=== PATIENT | female | born 1975 | race Caucasian/White ===

== ENCOUNTER 2018-04-17 14:48 | Observation (INO) ==
--- NOTE | 2018-04-17 15:49 | Diag Imaging Result Doc PS360 ---
EXAM: CT HEAD W/O CONTRAST HISTORY: cva TECHNIQUE: CT head without contrast. COMPARISON: None. FINDINGS: No parenchymal hemorrhage. No epidural or subdural hematoma. No subarachnoid hemorrhage. No mass identified on this noncontrasted exam. No hydrocephalus. No sinus opacification. IMPRESSION: No hemorrhage. Negative brain CT without contrast. This exam was performed using automated exposure control, adjustment of mA or kV according to patient size, and/or use of iterative reconstruction technique. Electronically signed by Santiago Choudhury 04/17/2018 3:47 PM
--- NOTE | 2018-04-17 15:50 | Diag Imaging Result Doc PS360 ---
EXAM: CHEST-1 VIEW HISTORY: cva TECHNIQUE: Chest single view COMPARISON: 04/13/2017 FINDINGS: The lungs are well expanded. The heart is not enlarged. The vessels are not distended. There are no infiltrates. No effusion identified. IMPRESSION: Negative exam. Electronically signed by Santiago Choudhury 04/17/2018 3:48 PM
--- NOTE | 2018-04-17 16:00 | PROVIDER DOCUMENTATION ---
This chart was entered by Moe Mejia Scribe, acting as scribe for Catherine Monreal MD. HPI-Neurological Disorder - General Chief Complaint: Stroke-Like Symptoms Stated Complaint: DISORIENTED Time Seen by Provider: 04/17/18 15:29 Source: patient, family Allergies/Adverse Reactions: Patient Allergies Allergy/AdvReac Type Severity Reaction Status Date / Time acetaminophen [From Midrin] Allergy Severe DIZZINESS Verified 05/16/13 08:04 dichloralphenazone Allergy Severe DIZZINESS Verified 05/16/13 08:04 [From Midrin] isometheptene mucate * Allergy Severe DIZZINESS Verified 05/16/13 08:04 [From Midrin] diclofenac Allergy Unknown Verified 04/17/18 15:19 Home Medications: Home Medication List Medication Instructions Recorded Confirmed Last Taken Type Metoprolol Succinate E.r. [Toprol 50 mg PO DAILY #30 tablet 05/16/13 08/17/13 07:00 Rx Xl] Losartan [Cozaar] 1 tab PO DAILY 08/16/13 08/17/13 08/16/13 08:00 History Omeprazole [Prilosec] 1 cap PO DAILY 08/16/13 08/17/13 08/16/13 08:00 History - History of Present Illness-Neuro Nature of Presenting Problem: 43 yof presents to ed with cc of stroke like symptoms. Reports that was at work turned around became dizzy, almost fell over went to write a list and was unable to write a list...Reports back of head tingling and heaviness of left arm since 1400 this evening. No LLE weakness, no change in speech, no headache but per he feels her answers are slower than normal though correct. Pt believes her mother age 70s had a CVA last year. Headache Location: reports: parietal (tingling) Severity: reports: mild Review of Systems - Adult - REVIEW OF SYSTEMS - ADULT Constitutional: denies: chills, fever, fatique Eyes: reports: no symptoms reported Ears, Nose, Mouth & Throat: denies: ear pain, sinus problem, throat pain Cardiovascular: denies: chest pain, irregular heart rate, orthopnea, syncope Respiratory: reports: no symptoms reported Gastrointestinal: denies: abdominal pain, nausea, vomiting Genitourinary: reports: no symptoms reported Musculoskeletal: reports: no symptoms reported Integumentary: reports: no symptoms reported Neurological: reports: dizziness/vertigo, headache/migraines, loss of balance, paresthesia. denies: numbness, seizure, slurred speech, syncope, tremors Psychiatric: denies: anxiety, anti-depressant use, panic attacks, suicidal thoughts Endocrine: reports: no symptoms reported Hematologic/Lymphatic: reports: no symptoms reported Allergic/Immunologic: reports: no symptoms reported All Other Systems: Reviewed and Negative Past History - Adult - PAST MEDICAL HISTORY-ADULT Review of Records: reports: Nursing Assessment Review, Medications Reviewed Major Childhood Illnesses: reports: denies history Cardiovascular: reports: hyperlipidemia Respiratory: reports: denies history Gastrointestinal: reports: denies history Obstetrical/Gynecological: reports: denies history Genitourinary: reports: denies history Musculoskeletal: reports: denies history Neurological: reports: denies history Endocrine/Immune: reports: denies history Other Conditions: reports: denies history - IMMUNIZATION STATUS Childhood Immunizations: See Nurse Assessment Flu Vaccine: See Nurse Assessment - FAMILY HISTORY Family History: reviewed, not pertinent - SOCIAL HISTORY Smoking: non-smoker Substance Use: none/never Physical Exam- Neurological - Physical Exam-Neuro Initial Vital Signs Reviewed: Yes General Appearance: appears well, alert, no apparent distress Eye Exam: bilateral eye: normal inspection, PERRL, abnormal EOM (right lateral gaze right eye not complete laterally, patient does say she is one of the few people who does not have to track together) HENMT: normocephalic/atraumatic, moist mucous membranes Head Injury: no evidence of injury Neck: non-tender, full range of motion, supple Respiratory: lungs clear, normal breath sounds, no pleuratic chest pain, no respiratory distress, no accessory muscle use Cardiovascular: normal peripheral pulses, regular rate, rhythm Abdominal Exam: non tender, soft Lymphatic: no adenopathy Peripheral Pulses: radial (R): 2+, radial (L): 2+, dorsalis-pedis (R): 2+, dorsalis-pedis (L): 2+ Extremity: normal range of motion, non-tender, normal gait yarn inspector Exam: PERRL, gaze palsy. negative: normal hearing, normal speech, abnormal eye position, abnormal gag reflex, abnormal pupil position, abnormal speech, facial asymmetry, facial droop, facial paresthesias, facial weakness, tongue deviation to R, tongue deviation to L Coordination/Gait: normal gait Motor/Sensory: weak motor strength LUE (very slight). negative: pronator drift (R), pronator drift (L) Neurologic: yarn inspector II-XII nml as tested, grossly normal Integumentary: normal color, normal turgor, warm/dry Psych/Mental Status: normal mood/affect, normal thought content, normal thought process, oriented x 3 - Glascow Coma Scale Best Eye Response: (4) open spontaneously Best Verbal Response: (5) oriented Best Motor Response: (6) obeys commands Progress - PLAN OF CARE/RESULTS Progress/Plan/Lab Results: Vital Signs - 8 hr 04/17/18 15:15 04/17/18 18:51 Temperature 98.0 F Pulse Rate 83 79 Respiratory Rate 18 18 Blood Pressure 163/99 161/92 O2 Sat by Pulse Oximetry 97 99 Laboratory Results - last 24 hr 04/17/18 04/17/18 04/17/18 15:58 16:04 16:04 WBC RBC Hgb Hct MCV MCH MCHC RDW Std Deviation Plt Count MPV Immature Gran % (Auto) Neut % (Auto) Lymph % (Auto) Iron % (Auto) Eos % (Auto) Baso % (Auto) Immature Gran # (Auto) Neut # (Auto) Lymph # (Auto) Iron # (Auto) Eos # (Auto) Baso # (Auto) PT INR PTT (Actin FS) Sodium 140 Potassium 3.9 Chloride 103 Carbon Dioxide 26 Anion Gap 12 BUN 10 Creatinine 0.5 Estimated GFR/1.73 m2 > 60 BUN/Creatinine Ratio 20 Glucose 96 POC Glucose 93 Calculated Osmolality 278 Calcium 9.4 Total Bilirubin 0.70 AST 18 ALT 23 Alkaline Phosphatase 93 Troponin T < 0.010 Total Protein 6.8 Albumin 3.8 Globulin 3.0 Albumin/Globulin Ratio 1.0 Urine Source Urine Color Urine Clarity Urine Turbidity Urine pH Ur Specific War Urine Protein Ur Glucose (Stick) Urine Ketones Ur Ketones (Stick) Urine Blood Urine Nitrite Urine Bilirubin Urine Urobilinogen Urobilinogen Dipstick Urine Leukocytes Urine WBC (Auto) Urine RBC (Auto) U Epithel Cells (Auto) Urine Bacteria (Auto) Urine Microscopic RBC Urine WBC Urine Microscopic WBC Ur Epithelial Cells Urine Bacteria Urine Yeast Urine Glucose 04/17/18 04/17/18 04/17/18 16:04 16:04 18:20 WBC 6.88 RBC 4.42 Hgb 12.2 Hct 37.9 MCV 85.7 MCH 27.6 MCHC 32.2 L RDW Std Deviation 14.2 Plt Count 277 MPV 9.0 Immature Gran % (Auto) 0.1 Neut % (Auto) 45.9 Lymph % (Auto) 45.2 Iron % (Auto) 6.4 Eos % (Auto) 2.0 Baso % (Auto) 0.4 Immature Gran # (Auto) 0.01 Neut # (Auto) 3.15 Lymph # (Auto) 3.11 Iron # (Auto) 0.44 Eos # (Auto) 0.14 Baso # (Auto) 0.03 PT 13.2 INR 0.95 PTT (Actin FS) 28.3 Sodium Potassium Chloride Carbon Dioxide Anion Gap BUN Creatinine Estimated GFR/1.73 m2 BUN/Creatinine Ratio Glucose POC Glucose Calculated Osmolality Calcium Total Bilirubin AST ALT Alkaline Phosphatase Troponin T Total Protein Albumin Globulin Albumin/Globulin Ratio Urine Source Cancelled Urine Color Cancelled Urine Clarity Urine Turbidity Cancelled Urine pH Cancelled Ur Specific War Cancelled Urine Protein Cancelled Ur Glucose (Stick) Cancelled Urine Ketones Ur Ketones (Stick) Cancelled Urine Blood Cancelled Urine Nitrite Cancelled Urine Bilirubin Cancelled Urine Urobilinogen Urobilinogen Dipstick Cancelled Urine Leukocytes Cancelled Urine WBC (Auto) Cancelled Urine RBC (Auto) Cancelled U Epithel Cells (Auto) Cancelled Urine Bacteria (Auto) Cancelled Urine Microscopic RBC Urine WBC Urine Microscopic WBC Ur Epithelial Cells Urine Bacteria Urine Yeast Urine Glucose 04/17/18 18:20 WBC RBC Hgb Hct MCV MCH MCHC RDW Std Deviation Plt Count MPV Immature Gran % (Auto) Neut % (Auto) Lymph % (Auto) Iron % (Auto) Eos % (Auto) Baso % (Auto) Immature Gran # (Auto) Neut # (Auto) Lymph # (Auto) Iron # (Auto) Eos # (Auto) Baso # (Auto) PT INR PTT (Actin FS) Sodium Potassium Chloride Carbon Dioxide Anion Gap BUN Creatinine Estimated GFR/1.73 m2 BUN/Creatinine Ratio Glucose POC Glucose Calculated Osmolality Calcium Total Bilirubin AST ALT Alkaline Phosphatase Troponin T Total Protein Albumin Globulin Albumin/Globulin Ratio Urine Source CLEAN CATCH Urine Color YELLOW Urine Clarity CLEAR Urine Turbidity Urine pH 6.5 Ur Specific War 1.015 Urine Protein NEGATIVE Ur Glucose (Stick) Urine Ketones NEGATIVE Ur Ketones (Stick) Urine Blood NEGATIVE Urine Nitrite NEGATIVE Urine Bilirubin NEGATIVE Urine Urobilinogen NORMAL Urobilinogen Dipstick Urine Leukocytes Urine WBC (Auto) Urine RBC (Auto) U Epithel Cells (Auto) Urine Bacteria (Auto) Urine Microscopic RBC <10 Urine WBC NEGATIVE Urine Microscopic WBC <10 Ur Epithelial Cells <10 Urine Bacteria NEGATIVE Urine Yeast PRESENT Urine Glucose NEGATIVE Orders Category Date Time Status Cardiac Monitoring DIRECTED Care 04/17/18 15:22 Active Finger Stick Blood Sugar (ED) DIRECTED Care 04/17/18 15:22 Active Misc. NRSG Communication Order DIRECTED Care 04/17/18 16:19 Active Oxygen Therapy- ED Nursing DIRECTED Care 04/17/18 16:19 Active Saline Loc NOW Care 04/17/18 15:22 Active CHEST-1 VIEW [RAD] Stat Exams 04/17/18 15:[address] HEAD W/O CONTRAST [CT] Stat Exams 04/17/18 15:22 Completed CTA [CT ANGIOGRAM HEAD/NECK] [CT] Stat Exams 04/17/18 16:46 Completed CBC WITH ELECTRONIC DIFF [HEME] Stat Lab 04/17/18 16:04 Completed COMPREHENSIVE METABOLIC PANEL [CHEM] Stat Lab 04/17/18 16:04 Completed PROTIME WITH INR [COAG] Stat Lab 04/17/18 16:04 Completed PTT [COAG] Stat Lab 04/17/18 16:04 Completed TROPONIN T Stat Lab 04/17/18 16:[address] W/POSS RFLX CULT [URINALYSIS] Stat Lab 04/17/18 18:20 Completed 0.9% Sodium Chloride Inj [Ns] 1,000 ml Med 04/17/18 16:16 Discontinued .ROUTE As Directed 0.9% Sodium Chloride Inj [Ns] 1,000 ml Med 04/17/18 16:19 Discontinued IV 999 mls/hr EKG [EKG] Stat Ther 04/17/18 15:[address] neg, spoke w [facility] for tele at 1609, camera in room and CT sent to [facility], BS 99, labs pending Pt used to be on Midrin for stress headaches she said due to mother in law, not on it now difftl includes complex migraine 1638 d/w Dr Andie Guallpa Neurology HPI exam meds PMH CT head results 1647 Dr Chaves exam improving, processing still slow, cont IVF, get CTA head neck, if neg admit at [facility] for echo and MRI tomorrow if pos transport to [facility] CTA head and neck neg, pt will be admitted here, call out to hospitalist 1854 Delay in rad reading of CTA head and neck, several phone calls placed d/w pt and results, she has improved, still a little bit of difficulty writing with left hand but much better, back to normal in speed of speech per 0 d/w [facility] HPI exam results. my d/w Dr Chaves and plan based on CT results, current exam Result Diagrams: 04/17/18 16:04 04/17/18 16:04 - EKG 1 Time of EKG reading by physician:: 15:52 EKG Read and Signed by:: Catherine Monreal EKG Interpretation (*Must complete 3 of following elements*): Abnormal (septal infarct age undetermined) Rate: 77 Rhythm: nsr Cordell: normal QRS: normal AL Interval: normal - XRAY 1 XRAY: Bilateral XRAY Study: Chest Impression: Normal (IMPRESSION: Negative exam. Electronically signed by Santiago Choudhury 04/17/2018 3:48 PM) - CT/MRI 1 CT Study: Head Impression: Normal ( IMPRESSION: No hemorrhage. Negative brain CT without contrast. This exam was performed using automated exposure control, adjustment of mA or kV according to patient size, and/or use of iterative reconstruction technique. Electronically signed by Santiago Choudhury 04/17/2018 3: 47 PM) Departure - Departure Date of Disposition Decision: 04/17/18 Time of Disposition Decision: 16:08 DIAGNOSIS: CVA (cerebral vascular accident) Disposition: ADMITTED INPATIENT 09 Certified Medical Emergency: Emergent Condition: Good Referrals and Follow-Ups: Kalpesh Escobedo MD [Primary Care Provider] - - Critical Care Note This patient required my direct & personal management of CC.: No Attestation - Physician/ ZAC Attestation Patient care was provided by Advanced Practice Provider:: No The physician spent face to face time with patient:: Yes Advanced Practice Provider documentation review:: Supervising physician onsite and consulted in the evaluation and care of this patient. The physician did have a face to face encounter with the patient. - NIH Stroke Scale NIH Type: Initial Evaluation Level of Consciousness: 0-Alert LOC Questions (ask month and age): 0-Answers Both Correctly LOC Commands (ask to open & close eyes;make a fist, let go): 0-Obeys Both Correctly Best Gaze (horizontal eye movement): 1-Partial Gaze Palsy (gaze is abnormal in one or both eyes) (right eye not full right lateral gaze, pt does say she is able to move her eyes independently) Visual (use finger movement, counting or visual threat): 0-No Visual Loss Facial Palsy (show teeth or raise eyebrows & close eyes tght: 0-Symmetrical Movement Motor Function-left arm: 0-Normal Motor Function-right arm: 0-Normal Motor Function-left le-Normal Motor Function-right le-Normal Limb Ataxia(eeritv-lkqy-eqjznh, or heel to browning): 0-No Ataxia Sensory(pin prick to face,arms,trunk,legs-compare side/side): 0-No Ataxia Best Language(name item/read sentence.Ex-Down to Earth): 0-No Aphasia Dysarthria(Pt read words or say words Ex.Mama,Tip-Top,Thanks: 0-Normal Articulation Extinction and Inattention: 0-Normal This chart was documented by the indicated scribe, (Moe Mejia, Scrshad) and accurately reflects the services I performed and decisions made by me, Catherine Monreal MD, as attested by the provider's signature.
[2018-04-17] MEDS ORDERED: NS 1,000 ML ONE (16:16)
[2018-04-17] MEDS ORDERED: NS 1,000 ML IV ONE (16:19)
[2018-04-17 16:21] LABS: BASO# 0.03 X1000 (0.0-0.2); BASO% 0.4 % (0.0-0.8); EOS# 0.14 X1000 (0.0-0.7); HEMATOCRIT 37.9 % (37.0-47.0); HEMOGLOBIN 12.2 g/dL (12.0-16.0); IMM GRAN# 0.01 X1000 (0.0-0.04); IMM GRAN% 0.1 % (0.0-0.5); LYMPH# 3.11 X1000 (1.2-3.4); LYMPH% 45.2 % (20.5-51.1); MCH 27.6 PG (27-31); MCHC 32.2 g/dL (33-37); MCV 85.7 FL (81-99); MONO# 0.44 X1000 (0.11-0.59); MONO% 6.4 % (1.7-9.3); NEUT# 3.15 X1000 (1.4-6.5); NEUT% 45.9 % (42.2-75.2); PLT 277 X1000 (130-400); RBC 4.42 XMIL (4.2-5.4); RDW 14.2 % (11.5-14.5); WBC 6.88 X1000 (4.8-10.8)
[2018-04-17 16:41] LABS: INR 0.95; PROTIME 13.2 Seconds (11.0-16.0); PTT 28.3 Seconds (22.3-41.8)
[2018-04-17 16:46] LABS: AGAP 12; ALBUMIN 3.8 g/dL (3.5-5.0); ALKALINE PHOSPHATASE 93 U/L (32-104); BUN 10 mg/dL (8-22); CALCIUM 9.4 mg/dL (8.8-10.2); CHLORIDE 103 mmol/L (98-107); COSMO 278; CREATININE 0.5 mg/dL (0.5-0.9); ESTIMATED GFR > 60; GLUCOSE 96 mg/dL (70-104); GOT 18 U/L (10-30); GPT 23 U/L (10-36); POTASSIUM 3.9 mmol/L (3.5-5.1); SODIUM 140 mmol/L (136-145); TCO2 26 mmol/L (25-35); TOTAL PROTEIN 6.8 g/dL (6.3-8.3)
[2018-04-17 18:29] LABS: URINE SOURCE CLEAN CATCH
[2018-04-17 18:37] LABS: BILIRUBIN URINE NEGATIVE (NEGATIVE); BLOOD URINE NEGATIVE (NEGATIVE); CLARITY CLEAR (CLEAR); COLOR YELLOW; GLUCOSE URINE NEGATIVE (NEGATIVE); KETONE URINE NEGATIVE (NEGATIVE); LEUKOCYTES URINE NEGATIVE (NEGATIVE); NITRITE URINE NEGATIVE (NEGATIVE); PH URINE 6.5; PROTEIN URINE NEGATIVE (NEGATIVE); SP GRAVITY URINE 1.015; UROBILINOGEN URINE NORMAL
--- NOTE | 2018-04-17 18:49 | Diag Imaging Result Doc PS360 ---
CT ANGIOGRAM HEAD/NECK - 04/17/2018 INDICATION: cva TECHNIQUE: Axial CT images were obtained after administering intravenous contrast. Three-dimensional angiographic images were generated. COMPARISON: Head CT from earlier today FINDINGS: The aortic arch is normal. There is aberrant origin of the right subclavian artery which is a normal anatomic variant. Otherwise all the great vessel origins are normal. The carotid artery systems are patent. The vertebral arteries are patent bilaterally. The jugular veins are patent. All of the intracranial arteries are normal in size and contour. No aneurysm or stenosis. Soft tissues are unremarkable. IMPRESSION: Negative exam. This exam was performed using automated exposure control, adjustment of mA or kV according to patient size, and/or use of iterative reconstruction technique Electronically signed by Satnam Fung 04/17/2018 6:46 PM
[2018-04-17 18:52] LABS: URINE BACTERIA NEGATIVE /HFP; URINE EPITHELIAL CELLS <10 /HPF (<10); URINE RBC <10 /HPF (<10); URINE WBC <10 /HPF (<10); URINE YEAST PRESENT /HPF
--- NOTE | 2018-04-18 07:09 | EKG Report ---
Test Performed on : 04/17/2018 3:52:44 PM Test Reason : cva Blood Pressure : / mmHG Vent. Rate : 077 BPM Atrial Rate : 077 BPM P-R Int : 150 ms QRS Dur : 088 ms QT Int : 432 ms P-R-T Axes : 021 005 -02 degrees QTc Int : 488 ms Normal sinus rhythm. Septal infarct (cited on or before 14-MAY-2013) Abnormal ECG When compared with ECG of 14-MAY-2013 09:16, No significant change was found Unconfirmed Result
[2018-04-18] MEDS ORDERED: COZAAR PO SCH (09:00)
[2018-04-18] MEDS ORDERED: TOPROL XL PO SCH (09:00)
[2018-04-18 15:30] VITALS: BP 116/61
--- NOTE | 2018-04-18 16:26 | HISTORY AND PHYSICAL ---
CHIEF COMPLAINT: Left arm heaviness and tingling. HISTORY OF PRESENT ILLNESS: This is a 43-year-old female, who presented to [facility] Emergency Room complaining of a sudden onset of dizziness, difficulty writing, and heaviness of her left arm that started about an hour and a half prior to coming to the emergency room. She denied any weakness, any change in speech, headaches, change in vision. At this time, her stated that she answered questions slower than normal, although her answers were correct. CT of the head revealed no hemorrhage. Negative CT without contrast. Labs were essentially normal, and she was admitted to the medical-surgical floor for further evaluation and treatment. PAST MEDICAL HISTORY: Hypertension. PAST SURGICAL HISTORY: Cyst removed from her right wrist, biopsy of her right leg and D and C x2. SOCIAL HISTORY: She denies alcohol, tobacco, or illicit drug use. ALLERGIES: Midrin causes dizziness and diclofenac causes unknown reaction. HOME MEDICATIONS: Losartan/hydrochlorothiazide 50/12.5 daily and omeprazole 40 mg p.o. daily. REVIEW OF SYSTEMS: Discussed with the patient with pertinent positives stated in the HPI. She denied any syncope, any chest pain, palpitations, any shortness of breath, cough, fever, chills, recent weight loss or weight gain, any night sweats, any nausea, vomiting, diarrhea, constipation, black or bloody vomitus or stools, hematuria dysuria, frequency, urgency. PHYSICAL EXAMINATION: GENERAL: This is a 43-year-old female, who is sitting up in the bed in no distress. VITAL SIGNS: Blood pressure is 158/94 with a heart rate of 81, respirations 20, temperature 97.8 degrees oral with room air saturations 97% to 98%. EYES: Pupils are equal, round, react to light. EOMS are intact. Sclerae are anicteric. HENT: Head is normocephalic, atraumatic. Mucous membranes are moist. NECK: Supple with trachea midline. CARDIOVASCULAR: Regular rate and rhythm. S1 and S2 are appreciated. She has no lower extremity edema with peripheral pulses palpable x4 extremities. PULMONARY: Breath sounds are clear with no increased work of breathing noted. Chest rises and falls symmetrically with respiration. GASTROINTESTINAL: Abdomen is large, soft, nontender, nondistended with bowel sounds in all 4 quadrants. SKIN: Warm and dry with no rashes or lesions noted. NEUROLOGIC: She is alert and oriented x3. Forehead is spared. She has equal nasal flaring. No tongue nor uvula deviation. Speech is clear. She has each equal shoulder shrug. No plantar drift. Muscle strength is 5/5 x4 extremities. Cmm Operator are equal. Gegugd-uf-xcns is 3/3 bilateral arms. Her gait is steady. LABS: WBC is 6.8 with hemoglobin 12.2, hematocrit 37.9, and platelets of 277. Sodium 140, potassium 3.9. BUN 10, creatinine 0.5 with a glucose of 96. Urinalysis essentially negative. X-RAYS: 1. Chest x-ray revealed a negative exam. Vessels are not distended. There are no infiltrates, no effusions. Lungs are well expanded. 2. CT of the head reveals negative brain CT without contrast. No hemorrhage. 3. CTA of the head and neck reveals aortic arch is normal. There is aberrant origin of the right subclavian artery which is a normal anatomic variant. Otherwise, all the great vessel origins are normal. Carotid artery systems are patent. Vertebral arteries are patent bilaterally. Jugular veins are patent. All the intracranial arteries are normal in size and contour. No aneurysm or stenosis. Soft tissues are unremarkable. ASSESSMENT AND PLAN: 1. Cerebrovascular accident. The patient has been admitted to the medical-surgical floor, placed on neuro checks which we will continue. We will obtain an echocardiogram, as well as a carotid ultrasound and MRI of the brain. 2. Hypertension. We will identify her home medications and continue these as appropriate. 3. Left arm tingling and heaviness. This is resolved. Further treatments pending hospital course. Dictated by BRIDGETTE oTrres for Mack Issa MD This chart was documented by, BRIDGETTE Torres and accurately reflects the services performed, treatment plan and medical decisions as attested by the providers signature Mack Issa MD. cc: BRIDGETTE Torres MD
--- NOTE | 2018-04-18 17:23 | Extremity Venous Study ---
EXAM: Carotid Ultrasound HISTORY: CVA TECHNIQUE: Carotid Doppler ultrasound COMPARISON: None. FINDINGS: Right: There is normal flow in the common carotid artery. No occlusion or stenosis. No plaque in the bulb. The peak systolic velocity in the internal carotid artery is 94 cm/s. The ICA/CCA ratio is 0.8. There is antegrade flow in the vertebral artery. Left: There is normal flow in the common carotid artery. No occlusion or stenosis. No plaque in the bulb. The peak systolic velocity in the internal carotid artery is 72 cm/s. The ICA/CCA ratio 0.6. There is antegrade flow in the vertebral artery. IMPRESSION: No occlusion or stenosis within either common carotid artery or within either internal carotid artery. Electronically signed by Santiago Choudhury 04/18/2018 5:20 PM
--- NOTE | 2018-04-18 23:30 | ECHO REPORT ---
ORDER DATE: 04/18/2018 MEASUREMENTS: Left ventricular end-diastolic diameter 4.5, end systolic diameter 2.8, septal thickness 1.1, posterior wall thickness 1.1, aortic root 3.1, left atrium 4.3. SUMMARY: 1. Technically difficult study due to limited acoustic window quality. 2. Aortic valve not well imaged but appears to open adequately on 2-dimensional images. Peak gradient across aortic valve is less than 10 mmHg. Mitral and tricuspid valves are without evidence of structural abnormality while pulmonic valve is not well demonstrated. There is trace tricuspid regurgitation. The estimated systolic PA pressure by Doppler is 35 mmHg. Aortic root is normal in size. 3. Normal left ventricular dimensions suggested on 2-dimensional images. Estimated left ejection fraction appears to be at least 65%. No regional wall motion abnormalities evident. Left atrium is mildly enlarged. Right atrium, right ventricle are grossly normal in size. 4. No pericardial effusion. 5. Inferior vena cava not well demonstrated. cc: MD Anaid Lee CRNP
--- NOTE | 2018-04-18 23:37 | HISTORY AND PHYSICAL ---
ADDENDUM: Patient seen and examined by myself. She presented to the ER with stroke-like symptoms. Thankfully these do appear to be resolving. We will admit her to the hospital, rule out [*]. Further orders as needed. Please see full dictation by nurse. cc: Mack Issa MD
--- NOTE | 2018-04-19 03:07 | DISCHARGE SUMMARY ---
ADMISSION DATE: 04/17/2018 DISCHARGE DATE: 04/18/2018 DISCHARGE DIAGNOSES: 1. Transient ischemic attack, resolved. 2. Hypertension. 3. Reflux. CONSULTATIONS: None. PROCEDURES: None. BRIEF HOSPITAL COURSE: The patient is a 43-year-old female who presented to [facility] secondary to acute stroke-like symptoms. She was having some slurred speech as well as weakness of her hand and difficulty writing. Thankfully, this completely resolved. On discharge, she is awake, alert, oriented, in no distress. DISPOSITION: Patient will be discharged home. She did not have an MRI in the hospital as she is unfortunately too large to fit in the machine. However, her carotid and echocardiogram were reported as normal and her symptoms have completely resolved. Therefore, she will be discharged home. Discussed with her the importance of controlling her blood pressure, cholesterol, as well as diet control at home. She will follow up outpatient with primary care of choice in 1 week. cc: Mack Issa MD
== END 2018-04-18 19:45 | disposition home or self-care (01) ==
LOC: P.ED 14:48 → INTOOBSV 14:49 → P.MEDSURG 14:49
PROVIDERS: ATTEND Family Medicine
CPT/HCPCS: 70450; 70496; 70498; 71010; 71045; 80053; 81001; 82948; 84484; 85025; 85610; 85730; 93005; 93306; 93880; 96360; 96361; 99285; A9270; J7030; Q9967; XXXXX